=== PATIENT | male | born 1940 | race Caucasian/White ===

== ENCOUNTER → 2016-09-05 | Outpatient (CLI) | payer MEDICARE, OTHER ==
[~2016-09-05] MED LIST: AMLO5TAB2 PO; ASPI-496; GABA300C10 PO; LEVO50TA5 PO; LIOT5TAB3 PO; MELO-184 PO; MULT-208 PO; OMEP40CA6 PO; SIMV10TA PO; TAMS0.4C2 PO
== END | disposition home or self-care (01) ==
LOC: CFH 07:36
PROVIDERS: ATTEND Family Medicine
DX: R07.9 Chest pain, unspecified (principal)
CPT/HCPCS: 71020; 78452; 93017; A9502

== ENCOUNTER → 2018-07-02 | Outpatient (CLI) | payer MEDICARE, OTHER ==
[~2018-07-02] MED LIST changes: +AMLO-150 PO; -AMLO5TAB2 PO; +ATOR20TA37 PO; -MELO-184 PO; +MELO15TA24 PO
[2018-07-02 10:05] LABS: BASOPHILS # (AUTO) 0.04 x10^3/uL (0-0.1); BASOPHILS % (AUTO) 1 % (0-1); EOSINOPHILS # (AUTO) 0.09 x10^3/uL (0-0.4); EOSINOPHILS % (AUTO) 2 % (1-7); LYMPHOCYTES # (AUTO) 1.13 x10^3/uL (1-3.4); LYMPHOCYTES % (AUTO) 29 % (22-44); MD NO; MEAN CORPUSCULAR HGB CONC 33.8 g/dL (33.2-36.2); MEAN CORPUSCULAR VOLUME 91.8 fL (81-97); MEAN PLATELET VOLUME 7.7 fL (7.4-10.4); MONOCYTES % (AUTO) 10 % (2-9); NEUTROPHILS # (AUTO) 2.18 x10^3/uL (1.8-6.8); NEUTROPHILS % (AUTO) 57 % (42-75); PLATELET COUNT 196 x10^3/uL (130-400); RED BLOOD COUNT 4.41 x10^6/uL (4.38-5.82)
[2018-07-02 10:12] LABS: MICROSCOPIC NOT IND
[2018-07-02 10:16] LABS: ANION GAP 4 mmol/L (5-15); CALCIUM 8.9 mg/dL (8.5-10.1); CHLORIDE 110 mmol/L (98-107); CREATININE 0.87 mg/dL (0.7-1.3); INTERNATIONAL NORMALIZED RATIO 1.02 (0.93-1.1); PROTHROMBIN TIME 10.7 Seconds (9.6-11.5)
[2018-07-02 10:16] LABS: CULTURE INDICATED? NO
== END | disposition home or self-care (01) ==
LOC: STAR 08:54
PROVIDERS: ATTEND Neurological Surgery
DX: Z01.818 Encounter for other preprocedural examination (principal); M48.061 Spinal stenosis, lumbar region without neurogenic claudication
CPT/HCPCS: 36415; 71046; 80048; 81003; 85025; 85610; 85730; 93005

== ENCOUNTER 2018-07-12 05:42 | Inpatient (IN) | payer MEDICARE, OTHER ==
[~2018-07-12] VITALS: Ht 180.3 cm; Wt 95.2 kg
[2018-07-12] MEDS ORDERED: BUPIVACAINE 0.25% ONE (05:56)
[2018-07-12] MEDS ORDERED: THROMBIN 20,000 UNIT VIAL TP ONE (05:57)
[2018-07-12] MEDS ORDERED: BACITRACIN 50,000 UNIT ONE (05:57)
[2018-07-12] MEDS ORDERED: BUPIVACAINE/PF-EPI 0.5% 1:200K ONE (05:57)
[2018-07-12 06:16] VITALS: BP 144/63
[2018-07-12] MEDS ORDERED: LACTATED RINGERS 1,000 ML IV SCH (06:21)
[2018-07-12] MEDS ORDERED: FENTANYL PF 250 MCG/5ML ONE (06:47)
[2018-07-12] MEDS ORDERED: MIDAZOLAM 1 MG/ML, 2ML ONE (06:47)
[2018-07-12] MEDS ORDERED: PROPOFOL 50 ML ONE ×2 (07:01→08:07)
[2018-07-12] MEDS ORDERED: REMIFENTANIL 2 MG ONE (07:21)
[2018-07-12] MEDS ORDERED: ROCURONIUM 10 MG/ML,10ML ONE (07:31)
[2018-07-12] MEDS ORDERED: PHENYLEPHRINE 10 MG/ML ONE (07:31)
[2018-07-12] MEDS ORDERED: CEFAZOLIN 1,000 MG ONE (07:31)
[2018-07-12] MEDS ORDERED: ONDANSETRON 2MG/ML, 2ML ONE (07:31)
[2018-07-12] MEDS ORDERED: OXYcodone 5 MG/5 ML ORAL.SOL UDC PO PRN (08:00)
[2018-07-12] MEDS ORDERED: MEPERIDINE/PF 25MG/0.5ML IVPush PRN (08:00)
[2018-07-12] MEDS ORDERED: hydrALAzine 20 MG/ML, 1ML IV PRN (08:00)
[2018-07-12] MEDS ORDERED: ACETAMINOPHEN 325 MG TABLET PO PRN (08:00)
[2018-07-12] MEDS ORDERED: FENTANYL PF 100 MCG/2ML IV PRN (08:00)
[2018-07-12] MEDS ORDERED: HALOPERIDOL 5 MG/ML IV PRN (08:00)
[2018-07-12] MEDS ORDERED: PROMETHAZINE 25 MG/ML, 1ML IV PRN (08:00)
[2018-07-12] MEDS ORDERED: HYDROmorphone 2 MG/ML, 1ML IVPush PRN (08:00)
[2018-07-12] MEDS ORDERED: DIAZEPAM 5 MG/ML, 2ML IVPush PRN (08:00)
[2018-07-12] MEDS ORDERED: FENTANYL PF 100 MCG/2ML ONE (09:04)
[2018-07-12] MEDS ORDERED: BUPIVACAINE/PF 0.25% ONE (09:05)
[2018-07-12] MEDS ORDERED: OXYcodone 5 MG/5 ML ORAL.SOL UDC ONE (09:57)
[2018-07-12] MEDS ORDERED: HYDROcodone/APAP 5/325 TABLET PO PRN (10:00)
[2018-07-12] MEDS ORDERED: PROMETHAZINE 25 MG/ML, 1ML IM PRN (10:00)
[2018-07-12] MEDS ORDERED: DIPHENHYDRAMINE 50 MG/ML, 1ML IVPush PRN (10:00)
[2018-07-12] MEDS ORDERED: PHARMACY MAY ADJ FOR RENAL FX MC PRN (10:00)
[2018-07-12] MEDS ORDERED: MAGNESIUM HYDROXIDE 8%, 30ML UDC PO PRN (10:00)
[2018-07-12] MEDS ORDERED: ONDANSETRON 2MG/ML, 2ML IVPush PRN (10:00)
[2018-07-12] MEDS ORDERED: BISACODYL 10 MG SUPP PR PRN (10:00)
[2018-07-12] MEDS ORDERED: CYCLOBENZAPRINE 10 MG TABLET ONE (10:07)
[2018-07-12] MEDS: CYCLOBENZAPRINE 10 MG TABLET PO PRN ×2 (10:10→18:05)
[2018-07-12] MEDS: NS + 20MEQ KCL 1,000 ML IV SCH ×2 (12:55→23:00)
[2018-07-12 14:08] VITALS: BP 125/66
[2018-07-12] MEDS: CEFAZOLIN PMX 1GM/50ML 50 ML IVPB SCH ×2 (14:42→23:09)
[2018-07-12] MEDS: OXYcodone/APAP 5/325MG TABLET PO PRN ×4 (16:27→23:14)
[2018-07-12 18:57] VITALS: BP 128/69
[2018-07-12] MEDS: morphine SULFATE 10 MG/ML, 1ML IVPush PRN ×3 (19:40→23:48)
[2018-07-12] MEDS: SODIUM CHLORIDE FLUSH 10ML SYR IVF SCH (20:57)
[2018-07-12] MEDS: ATORVASTATIN 20 MG TABLET PO SCH (20:57)
[2018-07-13] MEDS: morphine SULFATE 10 MG/ML, 1ML IVPush PRN ×2 (00:16→00:32)
[2018-07-13 00:30] VITALS: BP 146/69
[2018-07-13] MEDS: CYCLOBENZAPRINE 10 MG TABLET PO PRN ×3 (02:43→17:45)
[2018-07-13] MEDS: NS + 20MEQ KCL 1,000 ML IV SCH ×3 (02:44→20:04)
[2018-07-13 07:13] VITALS: BP 115/63
[2018-07-13] MEDS: OXYcodone/APAP 5/325MG TABLET PO PRN ×4 (07:27→20:04)
[2018-07-13] MEDS: SENNA/DOCUSATE TABLET PO PRN (07:27)
[2018-07-13] MEDS: AMLODIPINE 5 MG TABLET PO SCH (07:27)
[2018-07-13] MEDS: LEVOTHYROXINE 50 MCG TABLET PO SCH (07:27)
[2018-07-13] MEDS: OMEPRAZOLE 20 MG CAPSULE.DR PO SCH (07:27)
[2018-07-13] MEDS: SODIUM CHLORIDE FLUSH 10ML SYR IVF SCH ×2 (07:28→20:04)
[2018-07-13 12:30] VITALS: BP 163/75
[2018-07-13 18:25] VITALS: BP 132/74
[2018-07-13] MEDS: TAMSULOSIN 0.4 MG CAP.ER.24H PO SCH (20:04)
[2018-07-13] MEDS: ATORVASTATIN 20 MG TABLET PO SCH (20:04)
[2018-07-14] MEDS: OXYcodone/APAP 5/325MG TABLET PO PRN ×4 (00:43→19:34)
[2018-07-14 03:50] VITALS: BP 120/65
[2018-07-14] MEDS: CYCLOBENZAPRINE 10 MG TABLET PO PRN (03:55)
[2018-07-14 07:14] VITALS: BP 132/69
[2018-07-14] MEDS: OMEPRAZOLE 20 MG CAPSULE.DR PO SCH (08:45)
[2018-07-14] MEDS: AMLODIPINE 5 MG TABLET PO SCH (08:45)
[2018-07-14] MEDS: LEVOTHYROXINE 50 MCG TABLET PO SCH (08:45)
[2018-07-14] MEDS: SODIUM CHLORIDE FLUSH 10ML SYR IVF SCH ×2 (08:46→19:45)
[2018-07-14] MEDS: NS + 20MEQ KCL 1,000 ML IV SCH ×2 (12:00→21:47)
[2018-07-14 12:53] VITALS: BP 153/72
[2018-07-14 19:38] VITALS: BP 142/67
[2018-07-14] MEDS: TAMSULOSIN 0.4 MG CAP.ER.24H PO SCH (19:45)
[2018-07-14] MEDS: ATORVASTATIN 20 MG TABLET PO SCH (19:45)
[2018-07-15] MEDS: SENNA/DOCUSATE TABLET PO PRN (00:40)
[2018-07-15 02:43] VITALS: BP 134/56
[2018-07-15] MEDS: HYDROcodone/APAP 10/325 MG TABLET PO PRN ×3 (03:16→13:35)
[2018-07-15 07:26] VITALS: BP 138/70
[2018-07-15] MEDS: NS + 20MEQ KCL 1,000 ML IV SCH (07:35)
[2018-07-15] MEDS: LEVOTHYROXINE 50 MCG TABLET PO SCH (07:42)
[2018-07-15] MEDS ORDERED: MAGNESIUM CITRATE 300ML ORAL SOL PO ONE (08:30)
[2018-07-15] MEDS: OMEPRAZOLE 20 MG CAPSULE.DR PO SCH (08:33)
[2018-07-15] MEDS: AMLODIPINE 5 MG TABLET PO SCH (08:33)
[2018-07-15] MEDS: SODIUM CHLORIDE FLUSH 10ML SYR IVF SCH (09:00)
[2018-07-15] MEDS ORDERED: METOCLOPRAMIDE 10MG TABLET PO SCH (09:00)
[2018-07-15] MEDS ORDERED: MAGNESIUM CITRATE 300ML ORAL SOL PO PRN (09:30)
[2018-07-15] MEDS ORDERED: HYDR-3307 PO (09:37)
[2018-07-15] MEDS ORDERED: CEPH-368 PO (09:38)
[2018-07-15] MEDS ORDERED: CYCL-259 PO (09:38)
[2018-07-15 13:35] VITALS: BP 138/74
== END 2018-07-15 14:18 | disposition home or self-care (01) | DRG 517 ==
LOC: OUT 05:42 → ORIP 09:36 → 4NOR 10:52 → DCLOUNGE 07-15 14:10
PROVIDERS: ADMIT Neurological Surgery; ATTEND Neurological Surgery
PROC: 4A1104Z Monitoring of Peripheral Nervous Electrical Activity, Open Approach (ICD-10-PCS; 2018-07-12)
PROC: 01NB0ZZ Release Lumbar Nerve, Open Approach (ICD-10-PCS; principal; 2018-07-12 07:00)
DX: M48.062 Spinal stenosis, lumbar region with neurogenic claudication (principal); M54.16 Radiculopathy, lumbar region; I10 Essential (primary) hypertension; E78.5 Hyperlipidemia, unspecified; N40.0 Benign prostatic hyperplasia without lower urinary tract symptoms; Z87.891 Personal history of nicotine dependence
CPT/HCPCS: 72100; G0378; J0690; J2250; J2405; J2704; J3010; J3480; J3490; J2270; J2370; J7120

== ENCOUNTER → 2019-05-08 | Outpatient (CLI) | payer MEDICARE, OTHER ==
[~2019-05-08] MED LIST changes: +CEPH-368 PO; +CYCL-259 PO; +HYDR-36 PO; +LIOT5TAB11 PO; -LIOT5TAB3 PO; +OMEP40CA42 PO; -OMEP40CA6 PO
== END | disposition home or self-care (01) ==
LOC: CVU 08:23
PROVIDERS: ATTEND Internal Medicine Cardiovascular Disease
DX: I38 Endocarditis, valve unspecified (principal); I34.8 Other nonrheumatic mitral valve disorders; I35.8 Other nonrheumatic aortic valve disorders; I34.0 Nonrheumatic mitral (valve) insufficiency; I10 Essential (primary) hypertension; I51.7 Cardiomegaly
CPT/HCPCS: 93306